=== PATIENT | female | born 2005 | race Caucasian/White ===

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

== ENCOUNTER 2025-08-25 15:46 | Emergency (ER) | payer OTHER ==
[2025-08-25] MEDS ORDERED: Sodium Chloride 0.9% 10 ML Syringe FLUSH PRN (16:09)
[2025-08-25 16:21] LABS: BASOPHILS PERCENT AUTO 0.3 % (0.0-1.0); EOSINOPHILS PERCENT AUTO 2.2 % (1.0-3.0); LYMPHOCYTES PERCENT AUTO 31.3 % (20.5-50.1); MONOCYTES PERCENT AUTO 7.4 % (2-8); NEUTROPHILS PERCENT AUTO 58.8 % (42.2-75.2); PLATELET COUNT,PLT 337 10^3/uL (150-450); RED BLOOD CELL COUNT 4.08 10^6/uL (4.2-5.4); WHITE BLOOD CELL COUNT,WBC 9.9 10^3/uL (5.0-10.0)
[2025-08-25] MEDS: SUMAtriptan 6 MG/0.5 ML SDV SUBCUT ONE (16:21)
[2025-08-25] MEDS: diphenhydrAMINE 50 MG/ML SDV IVPUSH ONE (16:21)
[2025-08-25] MEDS: Dexamethasone 4 MG/ML SDV IVPUSH ONE (16:21)
[2025-08-25 16:38] LABS: A/G RATIO 1.0; ALANINE AMINOTRANSFERASE,ALT 44 U/L (14-59); ASPARTATE AMNIOTRANSFERASE,AST 24 U/L (15-37); BILIRUBIN TOTAL 0.2 mg/dL (0.2-1.0); BLOOD UREA NITROGEN,BUN 9 mg/dL (7-18); CARBON DIOXIDE,CO2 27 mmol/L (21-32); CHLORIDE,CL 106 mmol/L (98-107); CREATININE 0.68 mg/dL (0.55-1.02); EST CRCL DRUG DOSING (CG) 110.08 mL/min; GLUCOSE RANDOM 106 mg/dL (70-99); POTASSIUM,K 3.5 mmol/L (3.5-5.1); PROTEIN TOTAL,TP 7.3 g/dL (6.4-8.2); SODIUM,NA 142 mmol/L (136-145)
[2025-08-25 16:42] LABS: ESTIMATED GFR 129 mL/min (>=60)
[2025-08-25 16:47] LABS: HCG QUALITATIVE,SERUM NEGATIVE (NEGATIVE)
[2025-08-25 19:48] VITALS: BP 106/67; PULSE 98
== END 2025-08-25 19:40 | disposition home or self-care (01) ==
LOC: DL.ED 15:46
DX: G43.511 Persistent migraine aura without cerebral infarction, intractable, with status migrainosus (principal); Z79.899 Other long term (current) drug therapy
CPT/HCPCS: 36415; 70450; 80053; 84703; 85025; 96372; 96374; 96375; 99284; J1100; J1200; J2765; J3030